=== PATIENT | male | born 1980 | race Native Hawaiian/Other Pacific Islander ===

== ENCOUNTER 2020-06-11 01:17 | Emergency (ER) | payer MEDICAID ==
[~2020-06-11] VITALS: Ht 165.1 cm; Wt 72.6 kg
[2020-06-11] MEDS ORDERED: LABETALOL HCL 100 MG TABLET PO ONE (01:45)
[2020-06-11] MEDS ORDERED: CLONIDINE HCL 0.1 MG TABLET PO ONE (01:45)
[2020-06-11] MEDS ORDERED: CEFTRIAXONE 1 G VIAL IM ONE (01:45)
[2020-06-11] MEDS ORDERED: LIDOCAINE HCL 1% 20 ML VIAL ONE (01:52)
[2020-06-11] MEDS ORDERED: CLONIDINE HCL 0.1 MG TABLET ONE (01:52)
[2020-06-11] MEDS ORDERED: LABETALOL HCL 100 MG TABLET ONE (01:52)
[2020-06-11] MEDS ORDERED: CEFTRIAXONE 1 G VIAL ONE (01:53)
[2020-06-11] MEDS ORDERED: ENALAPRILAT DIHYDRATE 1.25 MG/1 ML VIAL IV ONE ×3 (02:59→03:00)
[2020-06-11] MEDS ORDERED: LABETALOL HCL 100 MG/20 ML VIAL ONE (03:00)
[2020-06-11] MEDS ORDERED: LABETALOL HCL 100 MG/20 ML VIAL IV ONE (03:00)
[2020-06-11] MEDS ORDERED: IV NORMAL SALINE 500 ML BAG IV ONE (03:15)
[2020-06-11 03:52] VITALS: BP 123/93
== END 2020-06-11 03:53 | disposition home or self-care (01) ==
LOC: ER 01:25
DX: L03.116 Cellulitis of left lower limb (principal); I89.0 Lymphedema, not elsewhere classified; R00.0 Tachycardia, unspecified; Z59.0 Homelessness; R61 Generalized hyperhidrosis; F17.290 Nicotine dependence, other tobacco product, uncomplicated
CPT/HCPCS: 93005; 93971; 96372; 96374; 96375; 99285; 99406; J0696; J3490 ×4; A4663; J7040